=== PATIENT | female | born 1975 | race African-American/Black ===

== ENCOUNTER 2022-04-20 22:46 | Emergency (ER) | payer MEDICAID, OTHER ==
[~2022-04-20] VITALS: Ht 162.6 cm; Wt 76.0 kg
[2022-04-21 00:58] LABS: Basophils # (auto) 0 10 ^3/uL (0-0.2); Basophils % (auto) 0.6 % (0.0-2.0); Eosinophils # (auto) 0.1 10 ^3/uL (0-0.8); Hematocrit 40.2 % (36.0-46.0); Hemoglobin 13.5 g/dL (12.2-16.2); Lymphocytes # (auto) 1.8 10 ^3/uL (0.4-5.4); Lymphocytes % (auto) 29.8 % (10.0-50.0); Mean Corpuscular Hemoglobin 29.3 pg (28.0-32.0); Mean Corpuscular Hgb Conc. 33.5 g/dL (32.0-36.0); Mean Corpuscular Volume 87.4 fL (80.0-100.0); Monocytes # (auto) 0.4 10 ^3/uL (0-1.3); Monocytes % (auto) 6.5 % (0.0-12.0); Neutrophils # (auto) 3.8 10 ^3/uL (1.6-8.6); Neutrophils % (auto) 62.1 % (37.0-80.0); Red Cell Distribution Width 14.1 % (11.8-14.3); White Blood Cell 6.1 10^3/uL (4.4-10.8)
[2022-04-21 01:10] LABS: BUN/Creatinine Ratio 9.4; Calcium 9.5 mg/dL (8.5-10.1); Potassium 3.9 mmol/L (3.5-5.1)
[2022-04-21 01:13] LABS: Bilirubin, Total 0.5 mg/dL (0.2-1.0); Total Protein 7.9 g/dL (6.4-8.2)
[2022-04-21 02:23] LABS: Urine Bacteria None Seen /hpf (None Seen); Urine Blood Normal /uL (Negative); Urine Specific Gravity 1.011 (1.001-1.035)
[2022-04-21 02:24] LABS: Urine WBC 4 /hpf (0 - 5)
[2022-04-21 05:30] VITALS: BP 117/64
== END 2022-04-21 05:36 | disposition home or self-care (01) ==
LOC: ER 22:49
DX: Q63.2 Ectopic kidney (principal); I72.2 Aneurysm of renal artery; Z90.710 Acquired absence of both cervix and uterus
CPT/HCPCS: 36415; 71045; 74176; 80053; 81001; 83690; 84484; 85025; 93005

== ENCOUNTER → 2023-08-27 | Outpatient (CLI) | payer OTHER ==
[2023-08-27 07:30] LABS: Alanine Aminotransferase 15 U/L (7-40); Alkaline Phosphatase 115 U/L (46-116); Anion Gap 5 (5-15); BUN/Creatinine Ratio 17.8 (10.0-20.0); Blood Urea Nitrogen 16 mg/dL (9-23); Calcium 9.5 mg/dL (8.7-10.4); Carbon Dioxide 27 mmol/L (20-30); Chloride 107 mmol/L (98-107); Glucose 104 mg/dL (74-106); Magnesium 1.8 mg/dL (1.6-2.6); Sodium 139 mmol/L (136-145); Uric Acid 5.3 mg/dL (3.1-7.8)
[2023-08-27 07:31] LABS: Albumin 4.5 g/dL (3.2-4.8); Protein, Urine 17.1 mg/dL (0.0-11.9)
[2023-08-27 07:32] LABS: Aspartate Aminotransferase 13 U/L (13-40); Bilirubin, Total 0.7 mg/dL (0.2-1.0); Total Protein 7.5 g/dL (5.7-8.2)
[2023-08-27 07:34] LABS: Creatinine, Urine 145.47 mg/dL (30.0-125.0); Urine Protein/Creatinine Ratio 0.12
[2023-08-27 07:45] LABS: CRP High Sensitivity 0.53 mg/dL (<1.0)
== END | disposition home or self-care (01) ==
LOC: LAB 06:25
PROVIDERS: ATTEND Internal Medicine
DX: N18.31 Chronic kidney disease, stage 3a (principal); R80.9 Proteinuria, unspecified; E83.39 Other disorders of phosphorus metabolism; M10.9 Gout, unspecified; R79.82 Elevated C-reactive protein (CRP)
CPT/HCPCS: 36415; 80053; 82570; 83735; 84156; 84550; 86141

== ENCOUNTER → 2023-08-30 | Outpatient (CLI) | payer OTHER ==
[2023-08-30 06:30] LABS: Urine Bacteria None Seen /hpf (None Seen)
[2023-08-30 06:44] LABS: Basophils # (auto) 0 10 ^3/uL (0-0.2); Basophils % (auto) 0.7 % (0.0-2.0); Eosinophils # (auto) 0.2 10 ^3/uL (0-0.8); Eosinophils % (auto) 2.3 % (0.0-7.0); Hematocrit 40.8 % (36.0-46.0); Hemoglobin 13.4 g/dL (12.2-16.2); Lymphocytes # (auto) 3.1 10 ^3/uL (0.4-5.4); Lymphocytes % (auto) 48.1 % (10.0-50.0); Mean Corpuscular Hemoglobin 29.4 pg (28.0-32.0); Mean Corpuscular Hgb Conc. 32.9 g/dL (32.0-36.0); Mean Corpuscular Volume 89.5 fL (80.0-100.0); Monocytes # (auto) 0.4 10 ^3/uL (0-1.3); Monocytes % (auto) 5.9 % (0.0-12.0); Neutrophils # (auto) 2.8 10 ^3/uL (1.6-8.6); Nucleated Red Blood Cells % 0.1 %; Red Blood Cells 4.56 10^6/uL (4.0-5.20); Red Cell Distribution Width 13.1 % (11.8-14.3); White Blood Cell 6.5 10^3/uL (4.4-10.8)
[2023-08-30 07:42] LABS: Urine Blood Negative /uL (Negative); Urine Clarity Clear (Clear); Urine Color Yellow (Yellow); Urine Mucus FEW (None Seen); Urine Protein, UAD TRACE (Negative); Urine Specific Gravity 1.029 (1.001-1.035); Urine Urobilinogen 2 mg/dL (Negative); Urine WBC 2 /hpf (0 - 5)
[2023-08-30 07:48] LABS: % Iron Saturation 18.1 % (15-50); Triglycerides 94 mg/dL (< 150)
[2023-08-30 07:49] LABS: Alanine Aminotransferase 15 U/L (7-40); Albumin 4.4 g/dL (3.2-4.8); Alkaline Phosphatase 103 U/L (46-116); Anion Gap 9 (5-15); Aspartate Aminotransferase 17 U/L (13-40); Bilirubin, Total 0.9 mg/dL (0.2-1.0); Calcium 9.3 mg/dL (8.5-10.1); Carbon Dioxide 22 mmol/L (20-30); Chloride 108 mmol/L (98-107); Cholesterol 192 mg/dL (< 200); Glucose 112 mg/dL (74-106); HDL Cholesterol 53 mg/dL (40-59); LDL Cholesterol 126 mg/dL (< 100); Sodium 139 mmol/L (136-145); Total Protein 7.5 g/dL (5.7-8.2)
[2023-08-30 08:11] LABS: BUN/Creatinine Ratio 15.1 (10.0-20.0); Blood Urea Nitrogen 11 mg/dL (9-23)
[2023-08-30 08:54] LABS: Uric Acid 4.9 mg/dL (3.1-7.8)
[2023-08-30 08:55] LABS: Magnesium 1.9 mg/dL (1.6-2.6)
[2023-08-30 10:42] LABS: Follicle Stimulating Hormone 50.73 IU/L (SEE BELOW); Leuteinizing Hormone 31.1 IU/L; Prolactin 18.31 ng/mL (2.8-29.2)
[2023-08-31 08:06] LABS: Estradiol 12.1 pg/mL (.); Thyroxine (T4) 6.7 ug/dL (4.5-12.0)
[2023-08-31 13:06] LABS: Immunoglobulin A 341 mg/dL (87-352); Immunoglobulin G, Serum 1329 mg/dL (586-1602); Immunoglobulin M 85 mg/dL (26-217)
== END | disposition home or self-care (01) ==
LOC: LAB 06:12 → ALLERGY 06:12
PROVIDERS: ATTEND Family Medicine
DX: Z00.00 Encounter for general adult medical examination without abnormal findings (principal); E55.9 Vitamin D deficiency, unspecified
CPT/HCPCS: 36415; 80053; 80061; 81001; 82306; 82607; 82670; 82784; 83001; 83002; 83036; 83540; 83550; 83735; 84144; 84146; 84403; 84436; 84443; 84550; 85025; 86334; 87086

== ENCOUNTER → 2024-03-27 | Outpatient (CLI) | payer OTHER ==
[~2024-03-27] MED LIST: ALBUTEROL SULF 2.5 MG/0.5ML(0.5%) NEB SOLN ONE
--- NOTE | 2024-03-29 22:06 | DVHNC2 ---
Procedure - March 27, 2024 Pulmonary function test interpretation Mild restrictive ventilatory defect No significant bronchodilator response. FEV1 improved by 160 mL. Total lung capacity is above normal limits, 144% of predicted (7.17 L). Diffusion capacity was not performed. PAULINA GUY MD Mar 29, 2024 22:06
== END | disposition home or self-care (01) ==
LOC: RT 10:19
PROVIDERS: ATTEND Internal Medicine Pulmonary Disease
DX: R06.00 Dyspnea, unspecified (principal)
CPT/HCPCS: 94060; 94727